=== PATIENT | female | born 1945 | race Caucasian/White ===

== ENCOUNTER 2022-04-08 00:07 | Emergency (ER) | payer MEDICARE, OTHER ==
[~2022-04-08] VITALS: Ht 154.9 cm; Wt 77.1 kg
[2022-04-08 00:07] VITALS: BP 154/86
[~2022-04-08 00:07] MED LIST: AML5T PO
[2022-04-08] MEDS ORDERED: METOPROLOL SUCCINATE XL 50 MG TAB PO ONE (01:30)
== END 2022-04-08 02:53 | disposition home or self-care (01) ==
LOC: ER 00:07
DX: I10 Essential (primary) hypertension (principal); Z90.49 Acquired absence of other specified parts of digestive tract